=== PATIENT | male | born 1960 | race Caucasian/White ===

== ENCOUNTER 2022-05-09 14:54 | Emergency (ER) | payer MEDICAID, OTHER ==
[2022-05-09 15:30] LABS: BASOPHILS % (AUTO) 0.1 %; EOSINOPHILS % (AUTO) 0.5 %; HCT - HEMATOCRIT 36.3 % (42.0-52.0); HGB - HEMOGLOBIN 12.3 g/dL (14.0-18.0); LYMPHOCYTES # (AUTO) 2.8 10^3/uL (1.5-3.5); LYMPHOCYTES % (AUTO) 32.1 %; MEAN CORPUSCULAR HEMOGLOBIN 30.6 pg (27.0-31.0); MEAN CORPUSCULAR HGB CONC 33.9 g/dL (32.0-36.0); MEAN CORPUSCULAR VOLUME 90.3 fL (80.0-94.0); MEAN PLATELET VOLUME 10.3 fL (7.4-11.4); MONOCYTES # (AUTO) 0.5 10^3/uL (0.0-1.0); MONOCYTES % (AUTO) 5.4 %; NEUTROPHILS # (AUTO) 5.4 10^3/uL (1.5-6.6); NEUTROPHILS % (AUTO) 61.7 %; PLT - PLATELET COUNT 207 10^3/uL (130-450); RED BLOOD COUNT 4.02 10^6/uL (4.70-6.10); RED CELL DISTRIBUTION WIDTH 12.7 % (12.0-15.0); WHITE BLOOD COUNT 8.7 x10^3/uL (4.8-10.8)
[2022-05-09] MEDS ORDERED: NITROGLYCERIN SL 0.4 MG TABLET SL STA (15:37)
[2022-05-09] MEDS ORDERED: ASPIRIN CHEW 81 MG TABLET PO STA (15:37)
--- NOTE | 2022-05-09 15:38 | ED Physician Documentation ---
History of Present Illness - Stated complaint Stated Complaint: CHEST TIGHTNESS - Chief complaint Chief Complaint: Cardiac - Additonal information Additional information: 61-year-old male to female transitioning patient presents to the emergency department for now 3-1/2 hours of chest tightness. He reports that he is also had some associated nausea and diaphoresis. He began taking estradiol about 3 years ago. He is not on any testosterone blockers. No tobacco user. Occasional cannabis user. Chest pain is not exertional. He occasionally has problems with digestion and does wonder if he has a hiatal hernia but his biggest concern is that he could be having a heart attack Review of Systems Constitutional: reports: Reviewed and negative Eyes: reports: Reviewed and negative Throat: reports: Reviewed and negative Cardiac: reports: Chest pain / pressure. denies: Palpitations, Pedal edema, Calf pain Respiratory: reports: Reviewed and negative GI: reports: Reviewed and negative : reports: Reviewed and negative Skin: reports: Reviewed and negative PD PAST MEDICAL HISTORY - Past Medical History Past Medical History: Yes Cardiovascular: None Respiratory: None Neuro: None Endocrine/Autoimmune: None GI: None : None HEENT: None Psych: None Musculoskeletal: None Derm: None - Past Surgical History General: Other - Present Medications Home Medications: Ambulatory Orders Medication Instructions Recorded Confirmed Estradiol Valerate 0 mg IM Q4D 05/09/22 05/09/22 - Allergies Allergies/Adverse Reactions: Allergies Allergy/AdvReac Type Severity Reaction Status Date / Time Penicillins AdvReac Mild Hives Verified 05/09/22 15:11 - Social History Does the pt smoke?: No Smoking Status: Never smoker Does the pt drink ETOH?: No Does the pt have substance abuse?: No - Immunizations Immunizations are current?: Yes PD ED PE NORMAL - General General: Alert and oriented X 3, No acute distress, Well developed/nourished - HEENT HEENT: Atraumatic, Moist mucous membranes - Neck Neck: Supple, no meningeal sign, No adenopathy - Cardiac Cardiac: RRR (Sinus bradycardia), No murmur - Respiratory Respiratory: No respiratory distress, Clear bilaterally - Abdomen Abdomen: Normal bowel sounds, Soft, Non tender - Back Back: No CVA TTP, No spinal TTP - Derm Derm: Normal color, Warm and dry, No rash - Extremities Extremities: No deformity, No tenderness to palpate, Normal ROM s pain - Neuro Neuro: Alert and oriented X 3, 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 No: Prolonged QT QRS: Poor R wave progression Ischemia: Normal ST segments Compare to prior EKG: Old EKG unavailable Computer interpretation: Agree with computer - Labs Labs: Laboratory Tests 05/09/22 05/09/22 05/09/22 15:19 15:19 15:19 WBC 8.7 RBC 4.02 L Hgb 12.3 L Hct 36.3 L MCV 90.3 MCH 30.6 MCHC 33.9 RDW 12.7 Plt Count 207 MPV 10.3 Neut # (Auto) 5.4 Lymph # (Auto) 2.8 Mower # (Auto) 0.5 Eos # (Auto) 0.0 Baso # (Auto) 0.0 Absolute Nucleated RBC 0.00 Nucleated RBC % 0.0 Sodium 134 L Potassium 3.8 Chloride 101 Carbon Dioxide 26 Anion Gap 7.0 BUN 12 Creatinine 0.6 Estimated GFR (MDRD) 136 Glucose 86 Calcium 9.2 Total Bilirubin 1.3 H AST 15 ALT 17 Alkaline Phosphatase 56 Troponin I High Sens 2.7 Total Protein 6.6 L Albumin 3.8 Globulin 2.8 Albumin/Globulin Ratio 1.4 Lipase 27 05/09/22 17:10 WBC RBC Hgb Hct MCV MCH MCHC RDW Plt Count MPV Neut # (Auto) Lymph # (Auto) Mower # (Auto) Eos # (Auto) Baso # (Auto) Absolute Nucleated RBC Nucleated RBC % Sodium Potassium Chloride Carbon Dioxide Anion Gap BUN Creatinine Estimated GFR (MDRD) Glucose Calcium Total Bilirubin AST ALT Alkaline Phosphatase Troponin I High Sens 2.5 Total Protein Albumin Globulin Albumin/Globulin Ratio Lipase - Rads (name of study) cxr Radiology: Final report received (No acute cardiopulmonary process) PD MEDICAL DECISION MAKING - ED course Complexity details: reviewed results, re-evaluated patient, considered differential, d/w patient ED course: 61-year-old transgender male presents to the emergency Department for evaluation of left-sided chest pain that feels like a tightness in his chest. He did begin hormone replacement therapy 3 years ago with estradiol. Also reportedly underwent a CT coronary angiogram 02/07/2021. Had a total calcium score of 187. Most significant findings were that of LAD artery with some atherosclerotic plaque and less than 25% stenosis. The RCA had atherosclerotic plaque and estimated 25 to 50% stenosis. I did consider pulmonary embolism. However there is no hypoxia. No unilateral leg swelling no recent travel hemoptysis or history of malignancy. By Wells criteria considered very low risk for PE Patient historically has a known bradycardia. Last ER visit in 2014 showed a resting heart rate of 38. Today's EKG is nonischemic and has a resting heart rate of 48. Patient has been normal tensive. CBC and electrolytes were without acute findings. Initial troponin completed just about 2 hours after the initial pain event was negative. A repeat troponin at 5 hours was also negative. 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 He may benefit from repeat testing such as stress test and/or repeat angiography. Otherwise he will continue his usual routine medications. Emergent return precautions were di scussed. Departure - Departure Disposition: Home, Self Care Clinical Impression: History of coronary artery disease Chest pain Qualifiers: Chest pain type: unspecified Qualified Code(s): R07.9 - Chest pain, unspecified Condition: Stable Record reviewed to determine appropriate education?: Yes Instructions: ED Chest Pain Atypical Unkn Cause Comments: Jeff you are seen today in the emergency department because you developed some left-sided chest pain around noon. Here in the emergency department your chest x-ray EKG and labs were all essentially normal. We did obtain 2 troponins and they were negative. However you do have a history of coronary artery disease as evidenced by the coronary angiogram completed in January 2021. I do recommend that you follow very closely with your quality control microbiology supervisor at the [facility]. You may benefit from repeat coronary angiography or through a stress test or echocardiogram. You can continue to take your usual medications. If at any point you develop sudden severe chest pain, have severe shortness of air or any fainting episodes you should return immediately to the ER for second evaluation.
[2022-05-09 15:42] LABS: ALBUMIN 3.8 g/dL (3.2-5.5); ALBUMIN/GLOBULIN RATIO 1.4 (1.0-2.2); BILIRUBIN,TOTAL 1.3 mg/dL (0.2-1.0); CALCIUM 9.2 mg/dL (8.5-10.3); CREATININE 0.6 mg/dL (0.6-1.2); POTASSIUM 3.8 mmol/L (3.5-5.0); TOTAL PROTEIN 6.6 g/dL (6.7-8.2)
--- NOTE | 2022-05-09 16:05 | XRAY Report ---
PROCEDURE: Chest 1 View X-Ray INDICATIONS: Chest Pain TECHNIQUE: One view of the chest was acquired. COMPARISON: None. FINDINGS: Surgical changes and devices: None. Lungs and pleura: No pleural effusions or pneumothorax. Lungs are clear. Mediastinum: Mediastinal contours appear normal. Heart size is normal. Bones and chest wall: No suspicious bony lesions. Overlying soft tissues appear unremarkable. IMPRESSION: No acute cardiopulmonary pathology. Reviewed by: Kishan Perez MD on 05/09/2022 4:03 PM [facility] Approved by: Kishan Perez MD on 05/09/2022 4:03 PM [facility] Station ID: [id number]
[2022-05-09 18:01] VITALS: BP 136/72
== END 2022-05-09 18:25 | disposition home or self-care (01) ==
LOC: ED 14:54
DX: R07.9 Chest pain, unspecified (principal); Z86.79 Personal history of other diseases of the circulatory system
CPT/HCPCS: 36415; 71045; 80053; 83690; 84484; 85025; 93005; 99284; A9270